=== PATIENT | male | born 1985 | race Caucasian/White ===

== ENCOUNTER 2017-12-05 21:55 | Emergency (ER) | payer SELFPAY ==
[~2017-12-05] VITALS: Ht 170.2 cm; Wt 68.0 kg
[2017-12-05 22:17] VITALS: BP 134/77
[2017-12-05] MEDS ORDERED: KETOROLAC TROMETHAMINE INJ 60 MG/2 ML VIAL IM ONE (23:00)
[2017-12-05] MEDS ORDERED: TETRACAINE HCL 2% OPHTHALIC 30 ML BOTTLE EACHEYE ONE (23:00)
[2017-12-05] MEDS ORDERED: TETRACAINE HCL/PF 0.5% UD 2 ML BOTTLE ONE (23:41)
[2017-12-05] MEDS ORDERED: KETOROLAC TROMETHAMINE INJ 30 MG/ML VIAL ONE (23:41)
--- NOTE | 2017-12-05 23:53 | NUR ---
PT REFUSED TX WITH ANGELINA LENS AND REFUSED MEDICATION.
== END 2017-12-06 00:30 | disposition home or self-care (01) ==
LOC: ER 22:04
DX: M54.2 Cervicalgia (principal); M79.1 Myalgia; H57.8 Other specified disorders of eye and adnexa; V49.59XA Passenger injured in collision with other motor vehicles in traffic accident, initial encounter; Y93.89 Activity, other specified; Y92.413 State road as the place of occurrence of the external cause; Y99.8 Other external cause status
CPT/HCPCS: 71045-TC; A4606; J1885; J7030; Z7610